=== PATIENT | female | born 1990 ===

== ENCOUNTER 2022-06-20 19:21 | Emergency (ER) | payer MEDICAID ==
[~2022-06-20] VITALS: Ht 157.5 cm; Wt 86.4 kg
[2022-06-20] MEDS ORDERED: FAMO20 PO (19:46)
[2022-06-20] MEDS ORDERED: MAG HYDROX/AL HYDROX/SIMETH ES 30 ML SUSPENSION UDCUP PO ONE (21:15)
[2022-06-20 23:56] VITALS: BP 132/76
== END 2022-06-21 00:25 | disposition home or self-care (01) ==
LOC: EMS 19:25
DX: R14.0 Abdominal distension (gaseous) (principal); I10 Essential (primary) hypertension; K21.9 Gastro-esophageal reflux disease without esophagitis; K29.70 Gastritis, unspecified, without bleeding
CPT/HCPCS: 99282; 99283